=== PATIENT | female | born 1990 | race Two or more races ===

== ENCOUNTER 2024-08-20 23:46 | Inpatient (IN) | payer MEDICAID, SELFPAY ==
[2024-08-21] VITALS (15 sets, daily range): BP systolic 96–124; BP diastolic 54–85; PULSE 54–94; RESP 16–98; TEMP 36.1–37; O2SAT 97–100; BMI 27.5; BMI 13.0
--- NOTE | 2024-08-21 | XR_ITS ---
Examinations: MRI Brain without intravenous contrast. MRA brain without intravenous contrast. MRA carotids without intravenous contrast 3-D vascular reconstructions Date and time of exam: August 21, 2024 0707 hours INDICATIONS: Progressive personality, onset focal neurologic deficit this a.m. Technique: Multiple axial and sagittal images of the brain have been obtained MRA brain carotid images without contrast obtained, including 3-D postprocessing, vascular maximum intensity projection images Findings: Sellaturcica is not enlarged. The optic chiasm and infundibular stalk are not remarkable. Prepontine and interpeduncular cisterns are not enlarged. No localized enlargement of the medulla or steven. Fourth ventricle and cerebellar tonsils normal in position. Subacute hemorrhage is not seen. Fourth ventricle is midline. Mass in the cerebellopontine angle region is not evident. 7th and 8th nerve complexes exhibits symmetry. Globes are symmetrical with no retro-orbital mass. Small area encephalomalacia right frontal lobe FLAIR image 12 Diffusion-weighted images demonstrate no focus of restricted diffusion Mass-effect upon the ventricular system is not identified. MRA carotid images no carotid stenoses. 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
--- NOTE | 2024-08-21 00:10 | PD.EDNEURO ---
Neuro Symptoms Deficit-RME/HPI General Chief Complaint: Weakness Stated Complaint: WEAKNESS Time Seen by Provider: 08/21/24 00:31 Arrival date/time: 08/20/24 23:46 RME / HPI RME / HPI Narrative: This section includes all my notes and documentations, including HPI, PE, and ED course. Jimmie Thomas MD HPI: 33 y/o female with Hx of TBI, Migraine, Osteoporosis and Fractures, Blindness, and Post Traumatic Stress Disorder presents with slurred words, and not being able to express words, and numbness in upper and lower extremities. Patient was sleeping with her . Family heard the crying for 10 minutes, with no reaction from the patient. When family went to the patient, she was unresponsive. Patient recalls the event. Her words wouldn't come out. No loss of power in the arms or legs. No chest pain. No other complaints. ROS: All negative except as documented in HPI. Physical Exam: General: Alert and oriented. No acute distress. Eyes: Conjunctivae and lids clear. ENT: No nasal congestion. Neck: Supple. No carotid bruit. No JVD. Heart: RRR. Lungs: No respiratory distress. Good air movement. No rhonchi, wheezing, rales. Abdomen: Soft and nontender. Legs: No clubbing, cyanosis, edema. Skin: Warm and dry. Neuro: Alert and oriented X 3. Cranial Nerves II-XII grossly intact. No peripheral motor deficits. I reviewed EMS notes. I reviewed all diagnostic test results: My interpretation of the EKG is: Sinus rhythm (61 bpm) with nonspecific ST-T changes. My interpretation of the chest x-ray is NAD, official radiology report is pending. My review of the Head/Brain CT report is: NAD. My review of the Head/Neck CTA report is: NAD. Blood tests and urine tests unremarkable. At this point, diagnoses include: Strokelike symptoms. Treatment here included: IV fluid. 0012: I discussed the case with Teleneurologist. About the presentation and exam and diagnostics and treatments here. And possible need of further care in the hospital. Recommended admission for further care. I discussed the case with our hospitalist. About the presentation and exam and diagnostics and treatments here. And need of further care in the hospital. Will accept the patient. Jimmie Thomas MD Related Data Allergies Allergy/AdvReac Type Severity Reaction Status Date / Time No Known Allergies Allergy Verified 08/21/24 01:22 Past Medical History Past Medical History NEUROLOGIC: Positive Migraine and Traumatic Brain Injury (2013) GASTROINTESTINAL: Positive Gastroesophageal Reflux Disease REPRODUCTIVE: Positive Previous Pregnancies MUSCULOSKELETAL: Positive Osteoporosis and Fractures ENT: Positive Blind (BILATERAL) PSYCHO/SOCIAL: Positive Post Traumatic Stress Disorder OTHER HISTORY: Positive Hospitalization and Blood Transfusions Surgical History SURGICAL: Positive Hip Sx (07/2024) and Section ED Exam Narrative Physical exam: Refer to HPI above. Course Quality Measures none Orders Category Date Time Status Bedside Blood Glucose NOW Care 08/21/24 00:12 Active Timber Inspector NOW Care 08/21/24 00:12 Active Continuous Pulse Oximetry NOW Care 08/21/24 00:12 Completed EKG (ED ONLY) *Do not use* NOW Care 08/21/24 00:12 Completed In and Out Catheter NEEDED Care 08/21/24 00:12 Active Insert IV NOW Care 08/21/24 00:12 Active NIH Stroke Scale now Care 08/21/24 00:12 Active NPO NOW Care 08/21/24 00:12 Active Nurse Swallow Screen x1 Care 08/21/24 00:12 Active Consult to Neurology / Tele-Neurology Routine Cons 08/21/24 00:[address] angio stroke protocol Stat Exams 08/21/24 00:[address] stroke protocol Stat Exams 08/21/24 00:12 Taken EKG (ED Only) Stat Exams 08/21/24 00:12 Draft XR chest 1V portable Stat Exams 08/21/24 00:13 Taken Alcohol, Blood Medical Stat Lab 08/21/24 00:17 Completed B-Type Natriuretic Peptide Stat Lab 08/21/24 00:17 Completed CBC Stat Lab 08/21/24 00:17 Completed Comprehensive Metabolic Panel Stat Lab 08/21/24 00:17 Completed Drug Screen,Urine Stat Lab 08/21/24 02:58 Completed Free T4 (Free Thyroxine) Stat Lab 08/21/24 00:17 Completed HCG Titer if Positive Stat Lab 08/21/24 00:17 Completed Magnesium Stat Lab 08/21/24 00:17 Completed Partial Thromboplastin Time Stat Lab 08/21/24 00:17 Completed Prothrombin Time with INR Stat Lab 08/21/24 00:17 Completed TSH [Thyroid Stimulating Hormone] Stat Lab 08/21/24 00:17 Completed Troponin I Stat Lab 08/21/24 00:17 Completed Urinalysis Stat Lab 08/21/24 02:58 Completed Urine Culture Stat Lab 08/21/24 02:58 Received Labetalol IV [Trandate IV] Med 08/21/24 00:11 Active 10 mg IVP Q15M PRN Ondansetron Inj [Zofran Inj] Med 08/21/24 00:11 Active 4 mg IVP Q4HR PRN Sodium Chloride 0.9% 1000 ml [Ns] 1,000 ml Med 08/21/24 00:15 Active IV Q10H Oxygen Delivery NOW RT 08/21/24 00:12 Active Vital Signs Vital signs: Vital Signs Temperature 98.4 F 08/21/24 00:01 Pulse Rate 78 08/21/24 00:01 Respiratory Rate 20 08/21/24 00:01 Blood Pressure 116/78 08/21/24 00:01 Pulse Oximetry (%) 97 08/21/24 00:01 Oxygen Delivery Method Room Air 08/21/24 00:01 Neuro Symptoms / Deficit MDM Narrative MDM Narrative:: Scribe Attestation: IGlenna am scribing for and in the presence of Dr. Thomas. Provider Notation: Although this document has been carefully reviewed, there may still be some phonetic and other typographical errors.? These errors are purely grammatical due to imperfections in the software program and should not be construed in any way to? compromise the substance of the patient's medical care during this visit. 33 y/o female with Hx of TBI, Migraine, Osteoporosis and Fractures, Blindness, and Post Traumatic Stress Disorder presents with slurred words, numbness and tingling to BL calves and arms that radiates down to her fingertips x just RECRUITER COORDINATOR. [id number] was unable to awaken patient for 10 minutes even with infant crying next to her. Denies more weakness to either side of the body. Describes event as sleep paralysis as she was aware of surroundings but was unable to speak. Patient had a recent and hip replacement. No other complaints. Patient data External records reviewed:: [facility] previous records (No prior ED records available for review.) and EMS form Clinical information provided by:: patient and EMS Social determinants that could affect healthcare access:: none Patient has the following chronic illnesses:: Migraine, Gastroesophageal Reflux Disease, Osteoporosis and Fractures, Blind, Post Traumatic Stress Disorder How is presenting disease/condition affected by chronic disease/condition?: exacerbated by Evaluation data The following diagnostics were reviewed and interpreted by me:: lab results, radiology exam(s) and EKG tracing(s) (My interpretation of the EKG is: Sinus rhythm (61 bpm) with nonspecific ST-T changes. Jimmie Thomas MD) Lab and/or radiology exams considered but not ordered:: None Interpretation Summary: I reviewed all diagnostic test results: My interpretation of the EKG is: Sinus rhythm (61 bpm) with nonspecific ST-T changes. My interpretation of the chest x-ray is NAD, official radiology report is pending. My review of the Head/Brain CT report is: NAD. My review of the Head/Neck CTA report is: NAD. Blood tests and urine tests unremarkable. Medications / Prescriptions Medications or Prescriptions considered but not ordered:: None Medication administrations:: Medication Administration History Acetaminophen (Acetaminophen 325 Mg Tablet) 650 mg PO Q6H PRN PRN Reason: pain and Fever >100.4 Stop: 09/20/24 02:37 Hydrocodone Bitart/Acetaminophen (Hydrocodone/Apap 5/325 Tablet) 1 tab PO Q4HR PRN PRN Reason: PAIN SCALE 4-10(Mod-Sev Stop: 08/26/24 02:37 Aspirin (Aspirin Ec 81 Mg Tabec) 81 mg PO QDAY FREDDY Stop: 09/20/24 08:59 Atorvastatin Calcium (Atorvastatin Calcium 20 Mg Tablet) 40 mg PO HS FREDDY Stop: 09/20/24 20:59 Heparin Sodium (Porcine) (Heparin Sod Inj 5000 Unit/Ml Vial) 5,000 unit SC Q8HR FREDDY Stop: 09/04/24 05:59 Sodium Chloride (Ns) 1,000 mls @ 100 mls/hr IV Q10H FREDDY Stop: 09/20/24 00:14 Last Admin: 08/21/24 01:35 Dose: 100 mls/hr Documented By: BD Labetalol HCl (Labetalol Inj 5 Mg/Ml Vial 20 Ml) 10 mg IVP Q15M PRN PRN Reason: HYPER Ondansetron HCl (Ondansetron Inj 2 Mg/Ml Inj 2 Ml) 4 mg IVP Q4HR PRN PRN Reason: NAUSEA OR VOMITING Stop: 09/20/24 00:10 Ondansetron HCl (Ondansetron Inj 2 Mg/Ml Inj 2 Ml) 4 mg IVP Q6H PRN; Protocol PRN Reason: NAUSEA OR VOMITING Stop: 09/20/24 02:37 From me, patient received only IV fluid. Consultations Consultation(s) initiated? (list below): Yes Consultation #1 (Physician, Specialty, Details): I discussed the case with Teleneurologist. About the presentation and exam and diagnostics and treatments here. And possible need of further care in the hospital. Recommended admission for further care. Time: 00:12 Diagnosis Neuro Differential Diagnosis: convulsions, delirium, subarachnoid hemorrhage, peripheral neuropathy, cerebrovascular accident, multiple sclerosis and transient cerebral ischemia Most likely diagnosis given after review of the tests above:: Sure like symptoms. Admission Indicated Admission indicated?: indicated Explain why admission is indicated or not indicated:: I discussed the case with Teleneurologist. About the presentation and exam and diagnostics and treatments here. And possible need of further care in the hospital. Recommended admission for further care. Admission Request Was there a request for admission?: Yes Admission Attestation Admission request attestation: Discussed case with Hospitalist service regarding admission. Discussed patients ED course, exam findings, labs, and radiology results. The Hospitalist [agrees] to accept the patient for admission. Disposition Plan Disposition Plan: Admit Discharge Plan Plan Patient Disposition: Admit Acute Care w/in Hospital Problem List Clinical Impression: Stroke-like symptoms
--- NOTE | 2024-08-21 00:12 | EKG_ITS ---
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
--- NOTE | 2024-08-21 00:12 | XR_ITS ---
Examination: CT brain head without contrast. 2-D sagittal coronal reconstructions Date and time of exam:August 21, 2024 0021 hours INDICATIONS: Stroke alert, difficulty speaking onset focal neurologic deficit today CTDI: vol (mGy):47 DLP: (mGycm):872 Technique: Multiple CT axial sections of the brain have been obtained, 5 mm slice thickness. Contrast has not been administered. 2-D sagittal, coronal reconstructions have been obtained Low dose protocols were performed. One or more of the following dose reduction techniques were used; automated exposure control, adjustment of the mA and/or KV according to patient size, use of iterative reconstruction technique. Findings: No significant ventricular enlargement. Intra-axial or extra-axial hemorrhage density is not seen. No mass effect or midline shift Basal cisterns are not remarkable. Fourth ventricle is midline. Cranial vault intact. Impression: Negative for acute hemorrhage, mass effect or midline shift
--- NOTE | 2024-08-21 00:12 | XR_ITS ---
Examination: CTA carotids with intravenous contrast CTA brain, head with intravenous contrast. 2-D sagittal, coronal reconstructions. 3-D reconstructions. Exam date and time: August 21, 2024 0049 hours INDICATIONS: Stroke alert, onset left-sided body weakness difficulty speaking today CTDI: vol (mGy) 11.2 DLP: (mGycm) 411 Technique: Multiple CTA axial brain, head carotid images post intravenous contrast injection 75 cc, [id number]. 2-D sagittal, coronal reconstructions. 3-D reconstructions, 3-D post processing including vascular maximum intensity projection images. Low dose protocols were performed. One or more of the following dose reduction techniques were used; automated exposure control, adjustment of the mA and/or KV according to patient size, use of iterative reconstruction technique. Findings: No common carotid carotid bifurcation or significant internal carotid artery stenoses Dominant right vertebral artery in the neck with no critical stenoses No cerebral large vessel arterial occlusions thrombosed dissection or cerebral aneurysm IMPRESSION: No significant neck arterial stenoses No cerebral arteries shows no arterial occlusions. Brain MR by MRA without contrast follow-up would best assess for demyelinating disease, acute ischemic change
--- NOTE | 2024-08-21 00:12 | PC.NURSE ---
Case Consult 08/21/2024 00:12:00 [facility] Case # [id number] has been created.
--- NOTE | 2024-08-21 00:13 | XR_ITS ---
Examination: AP chest single view Technique one AP portable upright chest single view Date and time: August 21, 2024 0111 hours INDICATIONS: Shortness of breath today FINDINGS: Normal heart size Small retrocardiac gastric hernia. No pneumonia or pulmonary edema IMPRESSION: No pneumonia or pulmonary edema
[2024-08-21 00:32] LABS: Basophils % (Auto) 0 % (0-2.5); Eosinophils # (Auto) 0.1 Thou/mm3 (0.0-0.5); Eosinophils % (Auto) 2 % (0-10); Hematocrit 38.4 % (36.0-46.0); Hemoglobin 12.8 g/dL (12.0-16.0); Immature Granulocytes % (Auto) 0 % (0-0); Immature Granulocytes Auto 0.02 Thou/mm3 (0.00-0.00); Lymphocytes # (Auto) 2.5 Thou/mm3 (1.0-4.8); Lymphocytes % (Auto) 33 % (10-50); Mean Corpuscular HGB Conc 33.3 g/dl (31.0-37.0); Mean Corpuscular Hemoglobin 29.1 pg (25.0-35.0); Mean Corpuscular Volume 87 fL (80-100); Monocytes # (Auto) 0.6 Thou/mm3 (0.0-0.8); Monocytes % (Auto) 8 % (0-12); Neutrophils # (Auto) 4.3 Thou/mm3 (1.8-7.7); Neutrophils % (Auto) 57 % (37-80); Nucleated Red Blood Cell % 0 /100 WBC (0); Platelet Count 359 Thou/mm3 (140-440); RDW Standard Deviation 48.5 fL (36.4-46.3); White Blood Count 7.7 Thou/mm3 (3.6-11.0)
[2024-08-21 00:41] LABS: Partial Thromboplastin Time 28.8 Seconds (22.0-36.0); Prothrombin Time 10.9 Seconds (9.0-12.2)
[2024-08-21 00:42] LABS: HCG Titer if Positive Negative
[2024-08-21 00:43] LABS: B-Type Natriuretic Peptide < 20 pg/mL (0-100)
[2024-08-21 00:50] LABS: Alanine Aminotransferase 79 U/L (10-49); Albumin, Serum 4.3 gm/dL (3.5-5.0); Albumin/Globulin Ratio 1.6 (1.2-2.2); Alcohol, Blood Medical < 3.0 mg/dL (0-10.0); Alkaline Phosphatase 165 U/L (46-116); Anion Gap 12 (7-16); BUN/Creatinine Ratio 15 Ratio (12-20); Bilirubin,Total 0.4 mg/dL (0.3-1.2); Blood Urea Nitrogen 9 mg/dL (9-23); Calcium 9.3 mg/dL (8.3-10.6); Calcium (Corrected) 9.3 mg/dL (8.5-10.1); Carbon Dioxide 23.1 mMol/L (20.0-31.0); Chloride 108 mMol/L (98-107); Creatinine (Component) 0.6 mg/dL (0.6-1.3); Free T4 (Free Thyroxine) 1.47 ng/dL (0.89-1.76); Globulin 2.7 gm/dL (2.3-3.5); Glucose 95 mg/dL (74-106); Magnesium 1.7 mg/dL (1.6-2.6); Osmolality,Calculated 283 (275-295); Potassium 3.5 mMol/L (3.4-5.1); Sodium 143 mMol/L (136-145); Thyroid Stimulating Hormone 2.08 uIU/mL (0.55-4.78); Troponin I < 0.002 ng/mL (0.0-0.045); eGFR > 60 See Note
--- NOTE | 2024-08-21 00:52 | PRELIM_ITS ---
CT scan of the head without intravenous contrast (axial sections with sagittal and coronal reformats) August 21, 2024 at 0021 hours Clinical History: Focal neuro deficit, stroke suspected, difficulty speaking, left-sided weakness. Comparison: No prior study is available for comparison. Findings: No evidence of intracranial hemorrhage, mass effect or midline shift. There is an ill-defined hypodensity in the left posterior temporal lobe (axial image 26/38), likely representing chronic infarct. There is no wedge-shaped hypodensity on present study to suggest acute infarct. The ventricles and CSF spaces are unremarkable. The calvarium is unremarkable. The mastoid air cells and the visualized paranasal sinuses are clear. Impression: No evidence of intracranial hemorrhage, wedge-shaped acute infarct or midline shift. If there are persistent clinical symptoms or additional clinical concerns, consider MRI. Small chronic infarct in the left posterior temporal lobe. Discussion Details: Results verbally communicated to : Dr Thomas at 12:39 AM 08/21/2024 Report Electronically Signed By: Beka Samuel 08/21/2024 12:52:00 AM [EST]
--- NOTE | 2024-08-21 00:59 | ESCONSULT_ITS ---
Tele Neuro Consultation Consultation Date 08/21/24 Consultation Narrative [facility] Tele[facility]rology Consult [facility] Patient Name:???Virginia Kaur Date of :???1990 Identification Number:??? Date of Service:???08/21/2024 00:12:00 Diagnosis:?R20.2 - Paresthesia of skin Impression: ?Patient presented with numbness. Head CT shows no acute process. Initial concern of sleep paralysis however patient continues to have unilateral numbness. Would recommend MRI brain wwo. Our recommendations are outlined below. Recommendations: ?MRI brain wwo. Sign Out: ? Discussed with Emergency Department Provider Advanced Imaging:Advanced Imaging Deferred because: Non-disabling symptoms as verified by the patient; no cortical signs so not consistent with LVO Metrics: Last Known Well: 08/20/2024 20:00:00 Dispatch Time: 08/21/2024 00:12:00 Arrival Time: 08/20/2024 23:46:00 Initial Response Time: 08/21/2024 00:20:00Symptoms: Numbness. Initial patient interaction: 08/21/2024 00:24:35 NIHSS Assessment Completed: 08/21/2024 00:28:52Patient is not a candidate for Thrombolytic. Thrombolytic Medical Decision: 08/21/2024 00:28:53Patient was not deemed candidate for Thrombolytic because of following reasons: LKW outside 4.[address] Head: I personally reviewed all the CT images that were available to me and it showed: no acute process. Primary Provider Notified of Diagnostic Impression and Management Plan on: 08/21/2024 00:57:56 History of Present Illness:Patient is a 33 year old Female. Patient was brought by EMS for symptoms of Numbness. Past Medical history of TBI presents with transient slurred speech and sleep paralysis . History was provided by the patient at bedside. Last seen normal was around 1999. Was unable to move around 2200. Tried to speak and was wasn't making sense. Eventually was able to move but felt numbness. ? Past Medical History: ?There is no history of Hypertension Medications: No Anticoagulant use? No Antiplatelet use Reviewed EMR for current medications Allergies:? Reviewed Social History: Drug Use: No Family History: There is no family history of premature cerebrovascular disease pertinent to this consultation ROS : 14 Points Review of Systems was performed and was negative except mentioned in HPI. Past Surgical History: There Is No Surgical History Contributory To Today?s Visit ? Examination: BP(116/78),?Pulse(78), 1A: Level of Consciousness - Alert; keenly responsive?+ 0 1B: Ask Month and Age - Both Questions Right?+ 0 1C: Blink Eyes & Squeeze Hands - Performs Both Tasks?+ 0 2: Test Horizontal Extraocular Movements - Normal?+ 0 3: Test Visual Barnett - No Visual Loss?+ 0 4: Test Facial Palsy (Use Grimace if Obtunded) - Normal symmetry?+ 0 5A: Test Left Arm Motor Drift - No Drift for 10 Seconds?+ 0 5B: Test Right Arm Motor Drift - No Drift for 10 Seconds?+ 0 6A: Test Left Leg Motor Drift - No Drift for 5 Seconds?+ 0 6B: Test Right Leg Motor Drift - No Drift for 5 Seconds?+ 0 7: Test Limb Ataxia (FNF/Heel-Lugo) - No Ataxia?+ 0 8: Test Sensation - Mild-Moderate Loss: Less Sharp/More Dull?+ 1 9: Test Language/Aphasia - Normal; No aphasia?+ 0 10: Test Dysarthria - Normal?+ 0 11: Test Extinction/Inattention - No abnormality?+ 0 NIHSS Score:?1 NIHSS Free Text :?Blind at baseline. ?Recent left hip replacement Pre-Morbid Modified Belinda Scale:2 Points = Slight disability; unable to carry out all previous activities, but able to look after own affairs without assistance Spoke with :?Dr Thomas This consult was conducted in real time using interactive audio and video technology. Patient was informed of the technology being used for this visit and agreed to proceed. Patient located in hospital and provider located at home/office setting. Patient is being evaluated for possible acute neurologic impairment and high probability of imminent or life-threatening deterioration. I spent total of 30 minutes providing care to this patient, including time for face to face visit via telemedicine, review of medical records, imaging studies and discussion of findings with providers, the patient and/or family. Dr Fran Guzmán [facility] For Inpatient follow-up with [facility] physician please call [facility] at . As we are not an outpatient service for any post hospital discharge needs please contact the hospital for assistance. If you have any questions for the [facility] physicians or need to reconsult for clinical or diagnostic changes please contact us via [facility] at .
[2024-08-21] MEDS: SODIUM CHLORIDE 0.9% 1000 ML 1,000 ML 100 ML IV (01:35)
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
[2024-08-21 03:17] LABS: Collection Type, Urine Clean Catch
[2024-08-21 03:36] LABS: Amphetamine/Methamp Scrn,U Negative (Negative); Barbiturate Screen,Urine Negative (Negative); Benzodiazepines Screen,Urine Negative (Negative); Benzoylecgonine Screen, Ur Negative (Negative); Bilirubin,Urine Negative (Negative); Blood,Urine Negative (Negative); Clarity,Urine Clear (Clear/Hazy); Color,Urine Lt-Yellow (Lt Yel-Yel); Fentanyl Screen,Urine Negative (Negative); Glucose, Urine Negative (Negative); Ketones,Urine Negative (Negative); Leukocyte Esterase,Urine Positive (Negative); Nitrite,Urine Negative (Negative); Opiate Screen,Urine Negative (Negative); PH,Urine 6.5 (5.0-7.0); Protein,Urine Negative (Neg - Trace); RBC,Urine 5 /hpf (0-3); Squamous Epithelial Cell,Urine 5 /hpf (0-5); THC Screen,Urine Negative (Negative); Urobilinogen,Urine Negative mg/dL (0.0-1.0); WBC,Urine 4 /hpf (0-5)
[2024-08-21 03:37] LABS: Specific Gravity,Urine > 1.035 (1.001-1.035)
[2024-08-21 04:42] LABS: Basophils % (Auto) 0 % (0-2.5); Eosinophils # (Auto) 0.1 Thou/mm3 (0.0-0.5); Eosinophils % (Auto) 1 % (0-10); Hemoglobin 11.9 g/dL (12.0-16.0); Immature Granulocytes % (Auto) 0 % (0-0); Immature Granulocytes Auto 0.01 Thou/mm3 (0.00-0.00); Lymphocytes % (Auto) 32 % (10-50); Mean Corpuscular HGB Conc 33.1 g/dl (31.0-37.0); Mean Corpuscular Hemoglobin 29.1 pg (25.0-35.0); Mean Corpuscular Volume 88 fL (80-100); Monocytes # (Auto) 0.5 Thou/mm3 (0.0-0.8); Monocytes % (Auto) 9 % (0-12); Neutrophils # (Auto) 3.6 Thou/mm3 (1.8-7.7); Neutrophils % (Auto) 57 % (37-80); Nucleated Red Blood Cell % 0 /100 WBC (0); Platelet Count 317 Thou/mm3 (140-440); RDW Standard Deviation 47.9 fL (36.4-46.3); Red Blood Count 4.09 Miln/mm3 (4.00-5.20); White Blood Count 6.3 Thou/mm3 (3.6-11.0)
[2024-08-21 04:59] LABS: Alanine Aminotransferase 75 U/L (10-49); Albumin, Serum 3.9 gm/dL (3.5-5.0); Albumin/Globulin Ratio 1.6 (1.2-2.2); Alkaline Phosphatase 151 U/L (46-116); Anion Gap 9 (7-16); BUN/Creatinine Ratio 15 Ratio (12-20); Bilirubin,Total 0.4 mg/dL (0.3-1.2); Blood Urea Nitrogen 9 mg/dL (9-23); Calcium 8.9 mg/dL (8.3-10.6); Carbon Dioxide 25.4 mMol/L (20.0-31.0); Cardiac Risk Estimate 4.7 RATIO (3.7-5.6); Chloride 109 mMol/L (98-107); Cholesterol 182 mg/dL (132-200); Creatinine (Component) 0.6 mg/dL (0.6-1.3); Estimated Creatinine Clearance 137.8 mL/min (>60); Globulin 2.5 gm/dL (2.3-3.5); Glucose 101 mg/dL (74-106); HDL Cholesterol 39 mg/dL (40-60); LDL Cholesterol,Calculated 108 mg/dL (0-130); Magnesium 1.8 mg/dL (1.6-2.6); Osmolality,Calculated 283 (275-295); Sodium 143 mMol/L (136-145); Total Protein 6.4 gm/dL (5.7-8.2); Triglycerides 173 mg/dL (30-150); eGFR > 60 See Note
[2024-08-21] MEDS: ASPIRIN EC 81 MG TABEC PO (08:53)
[2024-08-21 10:09] LABS: Folate 21.72 ng/mL (>5.38); Vitamin B12 359 pg/mL (211-911); Vitamin D 25 Hydroxy Total 27.3 ng/mL (7.3-40.2)
[2024-08-21 10:24] LABS: Syphilis Nonreactive (Nonreactive)
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
[2024-08-21] MEDS: ACETAMINOPHEN 325 MG TABLET 650 MG PO (11:26)
[2024-08-21 13:08] LABS: HIV (1&2) Antibody Rapid Non-Reactive
--- NOTE | 2024-08-21 13:12 | PC.NURSE ---
Medication reconciliation N/A as patient does not have a prescription list. NOTE: pt has completed Aspirin and opiod Rx post-op hip surgery; now takes OTC Tylenol for pain control.
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
[2024-08-21] MEDS: ATORVASTATIN CALCIUM 20 MG TABLET 40 MG PO (20:20)
[2024-08-21] MEDS: HYDROcodone/APAP 5/325 TABLET 1 TAB PO (20:31)
--- NOTE | 2024-08-21 23:47 | ESPR_ITS ---
Documentation for date of: 08/21/24 Subjective Subjective Interval history: Patient was seen in telemetry today at the bedside while eating dinner. No complaints today. She denies any more weakness or paresthesias in the LE. Exam - Neurology Vital Signs Temp Pulse Resp BP Pulse Ox O2 Del Method 97.0 F 78 17 111/64 97 Room Air 08/21/24 20:00 08/21/24 21:14 08/21/24 21:14 08/21/24 20:00 08/21/24 20:00 08/21/24 16:00 Narrative Exam GNERAL APPEARANCE: Well hydrated, well-nourished in no acute distress. HEENT: Normocephalic, atraumatic, extraocular movements intact. She is legally blind. Pupils: Equal reacting to light and accommodation, Moist oral mucosa. NECK: Supple, no JVD or bruits. CARDIOVASULAR: Heart: S1, S2 heard, regular without S3-S4 or murmur no rubs or gallops. LUNGS/CHEST: Clear to auscultation bilaterally. No rails, rhonchi, or wheezing. Normal inspection. ABDOMEN: Soft, nontender, with normal bowel sounds. No pulsatile masses. No rebound, rigidity, or guarding. Normal inspection and palpation. EXTREMITIES: Normal inspection and palpation. No edema, clubbing or cyanosis. SKIN: Warm and dry without rashes. Normal inspection. MUSCULOSKELETAL: No cervical, thoracic, lumbar or midline bony tenderness. Normal inspection. NEURO: Alert, awake and oriented x3. Cranial nerves: II through XII grossly intact. Speech and language: Normal with no dysarthria or dysphasia. Motor system: Tone and bulk: Normal: Strength: 5 out of 5 in all 4 extremities; No pronator drift noted. Deep tendon reflexes: 2+ bilaterally symmetrical. Plantar reflex: Downgoing bilaterally. Sensory system: Intact to all modalities of sensation bilaterally. Coordination: Intact to [id number] and xtgq-[id number]-pwgx test bilaterally. No ataxia, no dysmetria, or dysdiadochokinesia noted. No intention tremors noted. Gait: not tested. No signs of meningeal irritation noted. PSYCHIATRIC: Normal mood and affect. Objective Labs 08/21/24 04:35 08/21/24 04:35 Labs: Laboratory Results - last 24 hr 08/21/24 08/21/24 08/21/24 00:17 02:58 04:35 WBC 7.7 6.3 RBC 4.40 4.09 Hgb 12.8 11.9 L Hct 38.4 36.0 MCV 87 88 MCH 29.1 29.1 MCHC 33.3 33.1 RDW Std Deviation 48.5 H 47.9 H Plt Count 359 317 D Neut % (Auto) 57 57 Lymph % (Auto) 33 32 [place] % (Auto) 8 9 Eos % (Auto) 2 1 Baso % (Auto) 0 0 Neut # (Auto) 4.3 3.6 Lymph # (Auto) 2.5 2.0 [place] # (Auto) 0.6 0.5 Eos # (Auto) 0.1 0.1 Baso # (Auto) 0.0 0.0 Immature Gran # (Auto) 0.02 H 0.01 H Absolute Nucleated RBC 0.00 0.00 Immature Gran % 0 0 Nucleated RBC % 0 0 PT 10.9 INR 1.0 APTT 28.8 Sodium 143 143 Potassium 3.5 4.0 D Chloride 108 H 109 H Carbon Dioxide 23.1 25.4 Anion Gap 12 9 BUN 9 9 Creatinine 0.6 0.6 Estim Creat Clear Calc Not Performed. 137.8 eGFR > 60 > 60 BUN/Creatinine Ratio 15 15 Glucose 95 101 Calculated Osmolality 283 283 Calcium 9.3 8.9 Corrected Calcium 9.3 9.0 Magnesium 1.7 1.8 Total Bilirubin 0.4 0.4 ALT 79 H 75 H Alkaline Phosphatase 165 H 151 H Troponin I < 0.002 B-Natriuretic Peptide < 20 Total Protein 7.0 6.4 Albumin 4.3 3.9 Globulin 2.7 2.5 Albumin/Globulin Ratio 1.6 1.6 Triglycerides 173 H Cholesterol 182 LDL Cholesterol, Calc 108 HDL Cholesterol 39 L Cholesterol/HDL Ratio 4.7 Vitamin B12 359 25-OH Vitamin D Total 27.3 Folate 21.72 TSH 2.08 Free T4 1.47 Ur Collection Type Clean Catch Urine Color Lt-Yellow Urine Clarity Clear Urine pH 6.5 Ur Specific [place] > 1.035 H Urine Protein Negative Urine Glucose (UA) Negative Urine Ketones Negative Urine Blood Negative Urine Nitrite Negative Urine Bilirubin Negative Urine Urobilinogen (Auto) Negative Ur Leukocyte Esterase Positive Urine RBC 5 H Urine WBC 4 Ur Squamous Epith Cells 5 Urine Bacteria None Urine Opiates Screen Negative Urine Fentanyl Screen Negative Ur Barbiturates Screen Negative U Amphetamin/Meth Scrn Negative U Benzodiazepines Scrn Negative U Cocaine Metab Screen Negative U Marijuana (THC) Screen Negative Ethyl Alcohol < 3.0 Syphilis Serology HIV 1&2 Antibody Rapid Non-Reactive HCG (Qual) Negative 08/21/24 09:48 WBC RBC Hgb Hct MCV MCH MCHC RDW Std Deviation Plt Count Neut % (Auto) Lymph % (Auto) [place] % (Auto) Eos % (Auto) Baso % (Auto) Neut # (Auto) Lymph # (Auto) [place] # (Auto) Eos # (Auto) Baso # (Auto) Immature Gran # (Auto) Absolute Nucleated RBC Immature Gran % Nucleated RBC % PT INR APTT Sodium Potassium Chloride Carbon Dioxide Anion Gap BUN Creatinine Estim Creat Clear Calc eGFR BUN/Creatinine Ratio Glucose Calculated Osmolality Calcium Corrected Calcium Magnesium Total Bilirubin ALT Alkaline Phosphatase Troponin I B-Natriuretic Peptide Total Protein Albumin Globulin Albumin/Globulin Ratio Triglycerides Cholesterol LDL Cholesterol, Calc HDL Cholesterol Cholesterol/HDL Ratio Vitamin B12 25-OH Vitamin D Total Folate TSH Free T4 Ur Collection Type Urine Color Urine Clarity Urine pH Ur Specific [place] Urine Protein Urine Glucose (UA) Urine Ketones Urine Blood Urine Nitrite Urine Bilirubin Urine Urobilinogen (Auto) Ur Leukocyte Esterase Urine RBC Urine WBC Ur Squamous Epith Cells Urine Bacteria Urine Opiates Screen Urine Fentanyl Screen Ur Barbiturates Screen U Amphetamin/Meth Scrn U Benzodiazepines Scrn U Cocaine Metab Screen U Marijuana (THC) Screen Ethyl Alcohol Syphilis Serology Nonreactive HIV 1&2 Antibody Rapid HCG (Qual) Assessment & Plan Assessment and plan (1) Stroke-like symptoms: Status: Acute Assessment and plan: reassured her that the MRI brain resulted normal. Symptoms could have been related to acute stress disorder. Advised her to get enough rest and get some help in caring for her child. Afocal on neuro exam. Stable for discharge home.
[2024-08-22] VITALS: BP 94/71; PULSE 72; RESP 13; TEMP 36.3; O2SAT 96
[2024-08-22 02:38] VITALS: RESP 17
[2024-08-22 04:00] VITALS: BP 112/64; PULSE 72; RESP 18; TEMP 36.6; O2SAT 97
[2024-08-22 05:40] VITALS: BP 108/68; PULSE 59; RESP 18; TEMP 36.6; O2SAT 98
[2024-08-22 06:00] VITALS: BMI 26.1
[2024-08-22 06:27] LABS: Basophils % (Auto) 0 % (0-2.5); Eosinophils # (Auto) 0.2 Thou/mm3 (0.0-0.5); Eosinophils % (Auto) 3 % (0-10); Hematocrit 36.5 % (36.0-46.0); Hemoglobin 12.2 g/dL (12.0-16.0); Immature Granulocytes % (Auto) 0 % (0-0); Immature Granulocytes Auto 0.02 Thou/mm3 (0.00-0.00); Lymphocytes # (Auto) 1.7 Thou/mm3 (1.0-4.8); Lymphocytes % (Auto) 27 % (10-50); Mean Corpuscular HGB Conc 33.4 g/dl (31.0-37.0); Mean Corpuscular Hemoglobin 29.2 pg (25.0-35.0); Mean Corpuscular Volume 87 fL (80-100); Monocytes # (Auto) 0.6 Thou/mm3 (0.0-0.8); Monocytes % (Auto) 10 % (0-12); Neutrophils # (Auto) 3.8 Thou/mm3 (1.8-7.7); Neutrophils % (Auto) 60 % (37-80); Nucleated Red Blood Cell % 0 /100 WBC (0); Platelet Count 335 Thou/mm3 (140-440); RDW Standard Deviation 47.6 fL (36.4-46.3); Red Blood Count 4.18 Miln/mm3 (4.00-5.20); White Blood Count 6.4 Thou/mm3 (3.6-11.0)
[2024-08-22 06:40] LABS: Alanine Aminotransferase 84 U/L (10-49); Albumin, Serum 3.9 gm/dL (3.5-5.0); Albumin/Globulin Ratio 1.6 (1.2-2.2); Alkaline Phosphatase 154 U/L (46-116); Anion Gap 10 (7-16); BUN/Creatinine Ratio 13 Ratio (12-20); Bilirubin,Total 0.3 mg/dL (0.3-1.2); Blood Urea Nitrogen 8 mg/dL (9-23); Calcium 8.9 mg/dL (8.3-10.6); Carbon Dioxide 24.3 mMol/L (20.0-31.0); Chloride 110 mMol/L (98-107); Creatinine (Component) 0.6 mg/dL (0.6-1.3); Estimated Creatinine Clearance 134.5 mL/min (>60); Globulin 2.5 gm/dL (2.3-3.5); Glucose 95 mg/dL (74-106); Magnesium 1.7 mg/dL (1.6-2.6); Osmolality,Calculated 285 (275-295); Sodium 144 mMol/L (136-145); Total Protein 6.4 gm/dL (5.7-8.2); eGFR > 60 See Note
[2024-08-22 08:00] VITALS: BP 112/59; PULSE 63; RESP 19; TEMP 36.7; O2SAT 98
[2024-08-22] MEDS: ASPIRIN EC 81 MG TABEC PO (08:32)
[2024-08-22] MEDS: HYDROcodone/APAP 5/325 TABLET 1 TAB PO (08:32)
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
--- NOTE | 2024-08-22 10:00 | PC.SS ---
SS went to meet with pt at bedside to discuss concerns for transport and [employer] [facility]. Pt currently only possesses presumptive medical. SS informed pt once she has active [employer] and switched to a managed plan such as [employer] or [employer], she will then have access to [employer] until then unfortunately she does not have transportation coverage. SS informed pt for DC, SS can set her up with Uber or a [employer] whichever is available, pt is agreeable for transportation plan for DC, pt also reports family is home to receive her. SS also inquired if pt would like SS to set her up with a PCP appt for C, pt stated she rather make appointment herself as she does not have guaranteed transport. SS put all information in pt phone per her request. Pt also requested information for DC such as paperwork showing what she was seen for ect. SS informed pt Celine MCCARTHY will provide DC paper work with all visit information for her. SS updated Celine MCCARTHY and asked RN to call SS at ext [phone] when pt is ready to be wheeled down as [employer] is quick.
--- NOTE | 2024-08-22 11:29 | PC.SS ---
SS went tomet with pt at [facility] to discuss concerns for transport and [facility]. Pt currently only possesess presumtive medical. SS informed pt once she has active [employer] and swaitched to a managed plan such as [facility]
[2024-08-22 12:00] VITALS: BP 117/89; PULSE 66; PULSE 84; RESP 97; TEMP 36.3
--- NOTE | 2024-08-22 14:35 | PCS.ST ---
SS set up [employer] going back to pt residents [id number] [address]. SS updated Lester GRIMES pt to be down in 20 min look for a Zapata Paul NARVAEZ
--- NOTE | 2024-08-23 00:06 | VVPN_ITS ---
Telemedicine visit statement This visit was conducted with the use of interactive audio and video telecommunications system that permits real time communication between the patient and the provider. Patient's verbal consent for virtual visit was obtained on 08/22/24 Documentation for date of: 08/22/24 Subjective Subjective Interval history: Patient is in telemetry today, no new symptoms or recurrence of similar symptoms after admission. Virtual exam Vital Signs Temp Pulse Resp BP Pulse Ox O2 Del Method 97.3 F 66 97 H 117/89 H 98 Room Air 08/22/24 12:00 08/22/24 12:00 08/22/24 12:00 08/22/24 12:00 08/22/24 08:00 08/22/24 08:00 Objective Labs 08/22/24 06:10 08/22/24 06:10 Labs: Laboratory Results - last 24 hr 08/22/24 06:10 WBC 6.4 RBC 4.18 Hgb 12.2 Hct 36.5 MCV 87 MCH 29.2 MCHC 33.4 RDW Std Deviation 47.6 H Plt Count 335 Neut % (Auto) 60 Lymph % (Auto) 27 [place] % (Auto) 10 Eos % (Auto) 3 Baso % (Auto) 0 Neut # (Auto) 3.8 Lymph # (Auto) 1.7 [place] # (Auto) 0.6 Eos # (Auto) 0.2 Baso # (Auto) 0.0 Immature Gran # (Auto) 0.02 H Absolute Nucleated RBC 0.00 Immature Gran % 0 Nucleated RBC % 0 Sodium 144 Potassium 4.0 Chloride 110 H Carbon Dioxide 24.3 Anion Gap 10 BUN 8 L Creatinine 0.6 Estim Creat Clear Calc 134.5 eGFR > 60 BUN/Creatinine Ratio 13 Glucose 95 Calculated Osmolality 285 Calcium 8.9 Corrected Calcium 9.0 Magnesium 1.7 Total Bilirubin 0.3 ALT 84 H Alkaline Phosphatase 154 H Total Protein 6.4 Albumin 3.9 Globulin 2.5 Albumin/Globulin Ratio 1.6 Assessment & Plan Problem List (1) Stroke-like symptoms: Status: Acute Assessment and plan: reassured her that the MRI brain resulted normal. Symptoms could have been related to acute stress disorder. Advised her to get enough rest and get some help in caring for her child. Afocal on neuro exam. Stable for discharge home. will see her in clinic upon referral from her PCP.
== END 2024-08-22 14:45 | disposition home or self-care (01) | DRG 58 ==
LOC: SERX 08-21 03:19 → S2NX 08-21 08:38 → SERHOLD 08-21 08:39 → S2NX 08-21 10:29 → S3NX 08-22 05:30
PROVIDERS: Admitting Provider Student in an Organized Health Care Education/Training Program; Emergency Provider Emergency Medicine; Visit Provider Internal Medicine
DX: R47.81 Slurred speech (principal); R53.1 Weakness; H54.8 Legal blindness, as defined in USA; M81.0 Age-related osteoporosis without current pathological fracture; K21.9 Gastro-esophageal reflux disease without esophagitis; G43.909 Migraine, unspecified, not intractable, without status migrainosus; F43.10 Post-traumatic stress disorder, unspecified; R20.2 Paresthesia of skin; R20.0 Anesthesia of skin; Z87.820 Personal history of traumatic brain injury; Z98.891 History of uterine scar from previous surgery; F43.0 Acute stress reaction; R74.8 Abnormal levels of other serum enzymes; Z96.642 Presence of left artificial hip joint
CPT/HCPCS: 36415; 36600; 70450; 70496; 70498; 70544; 71045; 80053; 80061; 80307; 80320; 81001; 82306; 82607; 82746; 82803; 83735; 83880; 84439; 84443; 84484; 84703; 85025; 85610; 85730; 86703; 86780; 87077; 87086; 87186; 92507; 92526; 93005; 93225; 97163; 99285; A4649; G0378; J7030; Q9967; A9270; G0480